=== PATIENT | male | born 1975 | race Caucasian/White ===

== ENCOUNTER 2019-08-27 09:04 | Emergency (ER) | payer MEDICAID ==
[~2019-08-27] VITALS: Ht 172.7 cm; Wt 79.4 kg
[2019-08-27 09:04] VITALS: BP 125/84
--- NOTE | 2019-08-27 09:15 | NUR ---
44/M [place] [employer] for evaluation of abscess to left forearm. Officer states patient needs to be cleared for MRSA before correction. Pt denies any drug use. Pt denies pain.
[2019-08-27] MEDS ORDERED: SULFAMETH/TRIMETH DS 800/160MG 1 TAB PO ONE (10:00)
[2019-08-27 10:14] VITALS: BP 125/84
--- NOTE | 2019-08-27 10:14 | NUR ---
PATIENT MEDICALLY CLEARED AND RELEASED IN CUSTODY IN STABLE CONDITION. ORIGINAL AND COPY OF PRE-BOOK FORM GIVEN TO OFFICER LEIDY. PT DISCHARGED WITH RX BACTRIM DS.
== END 2019-08-27 10:14 | disposition home or self-care (01) ==
LOC: MED 09:04
DX: L03.114 Cellulitis of left upper limb (principal); I10 Essential (primary) hypertension; R00.0 Tachycardia, unspecified; E11.9 Type 2 diabetes mellitus without complications; F17.200 Nicotine dependence, unspecified, uncomplicated
CPT/HCPCS: 99283

== ENCOUNTER 2020-08-05 00:40 | Emergency (ER) | payer MEDICAID ==
[~2020-08-05] VITALS: Ht 170.2 cm; Wt 83.9 kg
--- NOTE | 2020-08-05 00:42 | NUR ---
PT TAKEN TO BED 8 VIA WHEELCHAIR
[2020-08-05 00:56] VITALS: BP 141/74
--- NOTE | 2020-08-05 01:01 | NUR ---
MD XIAO AT BEDSIDE
--- NOTE | 2020-08-05 01:08 | NUR ---
PT C/O LOWER BACK PAIN 10/10, SHARP IN NATURE. PAIN RADIATES DOWN RIGHT LEG, ON GOING X 2 DAYS. PT ALSO HAS A BUMP TO RIGHT GROIN AREA AND HE BELIEVES IT MIGHT BE RELATED. STATES BUMP PAINFUL TO TOUCH. PT UNABLE TO AMBULATE, REQUIRES WHEELCHAIR, DUE TO PAIN. PT ALSO C/O BRIGHT RED BLOOD IN STOOL X 1 MONTH. DENIES N/V/D. PT ABEBRILE, NO SOB. PT PLACED IN GOWN, BED IN LOWEST POSITION AND SIDERAIL UP X 1. NKA HX - HIV
[2020-08-05] MEDS ORDERED: KETOROLAC 30 MG/ML VIAL IVP ONE (01:15)
[2020-08-05] MEDS ORDERED: NACL 0.9% 1,000 ML IV ONE (01:15)
[2020-08-05 01:31] LABS: BASOPHILS % (AUTO) 0.4 % (0.0-2.0); EOSINOPHILS # (AUTO) 0.2 K/uL (0-0.4); EOSINOPHILS % (AUTO) 2.2 % (0.0-4.0); HEMATOCRIT 35.9 % (36-52); HEMOGLOBIN 12.3 g/dL (12.0-18.0); LYMPHOCYTES # (AUTO) 1.4 K/uL (2.0-11.5); LYMPHOCYTES % (AUTO) 18.6 % (20.5-51.1); MEAN CORPUSCULAR HEMOGLOBIN 31 pg (27-31); MEAN CORPUSCULAR HGB CONC 34 g/dL (33-37); MEAN CORPUSCULAR VOLUME 90.2 fL (80-94); MONOCYTES # (AUTO) 0.8 K/uL (0.8-1.0); MONOCYTES % (AUTO) 10.7 % (1.7-9.3); NEUTROPHILS # (AUTO) 5.1 K/uL (1.8-7.7); NEUTROPHILS % (AUTO) 68.1 % (42.2-75.2); PLATELET COUNT (AUTO) 277 K/uL (140-450); RED BLOOD CELL COUNT(AUTO) 3.98 MIL/uL (4.20-6.10); RED CELL DISTRIBUTION WIDTH 13.4 % (11.6-13.7); WHITE BLOOD COUNT (AUTO) 7.5 K/uL (4.8-10.8)
--- NOTE | 2020-08-05 01:38 | NUR ---
PT TAKEN TO CT SCAN VIA WHEELCHAIR
[2020-08-05 01:50] LABS: ALBUMIN 3.2 g/dL (3.4-5.0); ANION GAP 13.5 (8-16); CARBON DIOXIDE 26.9 mmol/L (21-32); CREATININE 1.1 mg/dL (0.6-1.3); POTASSIUM 3.4 mmol/L (3.5-5.1); PROTHROMBIN TIME 9.5 secs (10.8-13.4); TOTAL BILIRUBIN 0.2 mg/dL (0.0-1.0)
--- NOTE | 2020-08-05 01:59 | NUR ---
PT STATES TORADOL DIDNT HELP PAIN, STILL HAVING 10/10 PAIN TO BACK . MD XIAO AWARE
[2020-08-05] MEDS ORDERED: MORPHINE SULFATE 2 MG/ML SYR IVP ONE (02:05)
--- NOTE | 2020-08-05 03:16 | NUR ---
PT SLEEPING. NO DISTRESS NOTED
--- NOTE | 2020-08-05 03:55 | NUR ---
Patient discharged with v/s stable. Written and verbal after care instructions given and explained. Patient alert, oriented and verbalized understanding of instructions. Ambulatory with steady gait. All questions addressed prior to discharge. ID band removed. Patient advised to follow up with PMD. Rx of TRAMADOL, ROBAXIN, AND MOTRIN given. Patient educated on indication of medication including possible reaction and side effects. Opportunity to ask questions provided and answered.
[2020-08-05 04:01] VITALS: BP 132/75
== END 2020-08-05 03:55 | disposition home or self-care (01) ==
LOC: MED 00:40
DX: M54.41 Lumbago with sciatica, right side (principal); E11.9 Type 2 diabetes mellitus without complications; F17.200 Nicotine dependence, unspecified, uncomplicated
CPT/HCPCS: 36415; 74176; 80053; 85025; 85610; 85730; 96361; 96374; 96375; 99284; J1885; J2270; J7030